=== PATIENT | female | born 1935 ===

== ENCOUNTER 2022-03-18 05:34 | Day surgery (SDC) | payer OTHER ==
[~2022-03-18] VITALS: Ht 149.9 cm; Wt 54.4 kg
[~2022-03-18 05:34] MED LIST: TIROSINT25 MCG PO; ZESTRIL20 MG PO
== END 2022-03-18 11:20 | disposition home or self-care (01) ==
LOC: CIR.AMB 05:34
PROVIDERS: ATTEND Orthopaedic Surgery Hand Surgery
DX: M11.232 Other chondrocalcinosis, left wrist (principal); M19.032 Primary osteoarthritis, left wrist; I10 Essential (primary) hypertension; E03.9 Hypothyroidism, unspecified; Z20.822 Contact with and (suspected) exposure to COVID-19